=== PATIENT | female | born 1990 | race African-American/Black ===

== ENCOUNTER 2016-04-01 18:41 | Emergency (ER) | payer OTHER ==
[2016-04-01 19:14] VITALS: BP 122/76; PULSE 100; TEMP 98.1; BMI 20.5
[2016-04-01] MEDS ORDERED: ONDANSETRON 4 MG/2 ML VIAL IVPB ONE (21:32)
[2016-04-01] MEDS ORDERED: morphine CARPU-JECT 4 MG/1 ML DISP.SYRIN IVPUSH ONE (21:32)
[2016-04-01] MEDS ORDERED: SODIUM CHLORIDE 1,000 ML IV STA (21:32)
[2016-04-01] MEDS ORDERED: morphine CARPU-JECT 4 MG/1 ML DISP.SYRIN ONE (21:44)
[2016-04-01] MEDS ORDERED: ONDANSETRON 4 MG/2 ML VIAL ONE (21:45)
[2016-04-01 22:10] LABS: BASOPHIL 0.8 % (0-2.0); EOSINOPHIL 0.9 % (0-4.5); MCH 25.1 pg (25.7-33.7); MCHC 31.5 g/dl (32.0-36.0); MEAN CELL VOLUME 79.7 fl (80-96); MEAN PLT VOLUME 8.3 fl (7.5-11.1); NEUTROPHILS 61.4 % (42.8-82.8); PLATELET COUNT 244 K/MM3 (134-434); RDW 14.6 % (11.6-15.6); WHITE BLOOD COUNT 5.1 K/mm3 (4.0-10.0)
[2016-04-01 22:12] LABS: URINE APPEARANCE CLEAR; URINE BILIRUBIN NEGATIVE (NEGATIVE); URINE BLOOD 1+ (NEGATIVE); URINE COLOR STRAW; URINE GLUCOSE (UA) NEGATIVE (NEGATIVE); URINE KETONE NEGATIVE (NEGATIVE); URINE LEUK ESTERASE NEGATIVE (NEGATIVE); URINE NITRITE NEGATIVE (NEGATIVE); URINE PROTEIN NEGATIVE (NEGATIVE); URINE UROBILINOGEN NEGATIVE E.U./dl (0.2-1.0)
[2016-04-01 22:13] LABS: URINE MUCUS RARE; URINE RBC <1 /hpf (0-3); URINE WBC 1 /hpf (3-5)
[2016-04-01 22:50] LABS: ALBUMIN 4.2 g/dl (3.4-5.0); ANION GAP 5 (8-16); CALCIUM 9.3 mg/dL (8.5-10.1); CO2 29 mmol/L (21-32); CREATININE 0.6 mg/dL (0.55-1.02); GLUCOSE,RANDOM 92 mg/dL (74-106); SGOT/AST 16 U/L (15-37); SGPT/ALT 15 U/L (12-78)
[2016-04-01 22:51] LABS: ALK PHOS 58 U/L (45-117); BILIRUBIN,TOTAL 0.4 mg/dL (0.2-1.0); TOT PROT 7.9 g/dl (6.4-8.2)
--- NOTE | 2016-04-01 23:11 | PDOC ---
History of Present Illness - General Chief Complaint: Pain Stated Complaint: VOMITING/ABD PAIN Time Seen by Provider: 04/01/16 20:26 History Source: Patient Exam Limitations: No Limitations - History of Present Illness Initial Comments: 04/01/16 23:09 Patient is a 25-year-old female with h/o HTN, anemia here with complaints of right-sided abdominal pain 2 months. Pain is 10/10 in the right side and radiated to the right flank. States for the past 2-3 weeks she has not been eating well and vomiting with each meal. Describes her pain as sharp and continuous right side and is worse with eating, also associated with abdominal bloating. She was seen at [facility] a week ago for the same condition, and was told that she had a cyst on the ovary but states that the ultrasound machine was down and therefore was not able to get any studies done. States she has no seen her menses since January, had a little bit of spotting last night. She has been taking Tylenol and naproxen without relief of pain. Denies fever, chills, diarrhea. PMD: [facility] PMHX: as above PSocHX: (+) cig 6/day, PFamHx: Noncontributory ALL: NKDA GENERAL/CONSTITUTIONAL: [No fever or chills. No weakness. No weight change.] HEAD, EYES, EARS, NOSE AND THROAT: [No change in vision. No ear pain or discharge. No sore throat.] CARDIOVASCULAR: [No chest pain or shortness of breath.] RESPIRATORY: [No cough, wheezing, or hemoptysis.] GASTROINTESTINAL: [No nausea, vomiting, diarrhea or constipation. No rectal bleeding.] GENITOURINARY: [No dysuria, frequency, or change in urination.] MUSCULOSKELETAL: [No joint or muscle swelling or pain. No neck or back pain.] SKIN AND BREASTS: [No rash or easy bruising.] NEUROLOGIC: [No headache, vertigo, loss of consciousness, or loss of sensation.] PSYCHIATRIC: [No depression or anxiety.] ENDOCRINE: [No increased thirst. No abnormal weight change.] HEMATOLOGIC/LYMPHATIC: [No anemia, easy bleeding, or history of blood clots.] ALLERGIC/IMMUNOLOGIC: [No hives or skin allergy. No latex allergy.] GENERAL: [The patient is awake, alert, and fully oriented, in mild distress.] HEAD: [Normal with no signs of trauma.] EYES: [Pupils equal, round and reactive to light, extraocular movements intact, sclera anicteric, conjunctiva clear.] ENT: [Ears normal, nares patent, oropharynx clear without exudates. Moist mucous membranes.] NECK: [Normal range of motion, supple without lymphadenopathy, JVD, or masses.] LUNGS: [Breath sounds equal, clear to auscultation bilaterally. No wheezes, and no crackles.] HEART: [Regular rate and rhythm, normal S1 and S2 without murmur, rub.] ABDOMEN: [Soft, (+) tenderness right side mid quad to RUQ, normoactive bowel sounds. No guarding, no rebound. No masses, (+) RCVAT] EXTREMITIES: [Normal range of motion, no edema. No clubbing or cyanosis. No cords, erythema, or tenderness.] NEUROLOGICAL: [Cranial nerves II through XII grossly intact. Normal speech, normal gait.] PSYCH: [Normal mood, normal affect.] SKIN: [Warm, Dry, normal turgor, no rashes or lesions noted.] Past History - Past Medical History Allergies/Adverse Reactions: Allergies Allergy/AdvReac Type Severity Reaction Status Date / Time No Known Allergies Allergy Verified 04/01/16 19:13 Home Medications: Ambulatory Orders Tramadol HCl [Ultram] 50 mg PO QID #14 tablet MDD 6 04/02/16 Anemia: Yes Asthma: No Cancer: No Cardiac Disorders: No Diabetes: No HTN: Yes Seizures: No Thyroid Disease: No Other medical history: preeclamsia - Psycho/Social/Smoking Cessation Hx Suicidal Ideation: No Smoking History: Current every day smoker Have you smoked in the past 12 months: Yes Number of Cigarettes Smoked Daily: 6 Information on smoking cessation initiated: No 'Breaking Loose' booklet given: 10/27/15 Hx Alcohol Use: No Drug/Substance Use Hx: No Hx Substance Use Treatment: No *Physical Exam - Vital Signs Last Vital Signs Temp Pulse Resp BP Pulse Ox 98.1 F 100 H 18 122/76 100 04/01/16 19:08 04/01/16 19:08 04/01/16 19:08 04/01/16 19:08 04/01/16 19:08 ED Treatment Course - LABORATORY CBC & Chemistry Diagram: 04/01/16 22:00 04/01/16 22:00 - ADDITIONAL ORDERS Additional order review: Laboratory Results 04/01/16 04/01/16 22:00 22:00 Sodium 138 Potassium 4.4 Chloride 104 Carbon Dioxide 29 Anion Gap 5 L BUN 13 D Creatinine 0.6 Creat Clearance w eGFR > 60 Random Glucose 92 D Calcium 9.3 Total Bilirubin 0.4 D AST 16 ALT 15 Alkaline Phosphatase 58 Total Protein 7.9 Albumin 4.2 Lipase 164 Urine Color Straw Urine Appearance Clear Urine pH 8.0 D Ur Specific [place] 1.009 Urine Protein Negative Urine Glucose (UA) Negative Urine Ketones Negative Urine Blood 1+ H Urine Nitrite Negative Urine Bilirubin Negative Urine Urobilinogen Negative Ur Leukocyte Esterase Negative Urine RBC <1 Urine WBC 1 Ur Epithelial Cells Rare Urine Mucus Rare 04/01/16 22:00 RBC 4.72 MCV 79.7 L MCHC 31.5 L RDW 14.6 MPV 8.3 Neutrophils % 61.4 Lymphocytes % 29.4 D Monocytes % 7.5 Eosinophils % 0.9 Basophils % 0.8 D - RADIOLOGY Radiology Studies Ordered: Category Date Time Status ABDOMEN US [US] Stat Ultrasound 04/01/16 23:04 Ordered KIDNEY / RENAL US [US] Stat Ultrasound 04/01/16 23:04 Ordered - Medications Given in the ED: ED Medications Discontinued Medications Generic Name Dose Route Start Last Admin Trade Name Freq PRN Reason Stop Dose Admin Sodium Chloride 1,000 mls @ 1,000 mls/hr 04/01/16 21:32 04/01/16 22:08 Normal Saline - IV 04/01/16 22:31 1,000 mls/hr ASDIR STA Administration Morphine Sulfate 4 mg 04/01/16 21:32 04/01/16 22:08 Morphine Injection - IVPUSH 04/01/16 21:33 4 mg ONCE ONE Administration Ondansetron HCl 4 mg 04/01/16 21:32 04/01/16 22:08 Zofran Injection IVPB 04/01/16 21:33 4 mg ONCE ONE Administration Medical Decision Making - Medical Decision Making 04/01/16 23:21 Patient is a 25-year-old female with h/o HTN, anemia here with complaints of right-sided abdominal pain 2 months. DDX include but not limited to pregancy, gallstone, kidney stone, ovarian cyst. Appendicits low suspicion due to chronic nature of the pain,. will get labs, US Patient feels better after pain meds. Patient Name: Vitaliy Guzman This is a preliminary report by imaging pay station department manager Exam: Transabdominal and endovaginal sonogram and duplex sonography Images: 51 Clinical indication: Right-sided abdominal pain. Findings: The uterus is anteverted and measures 9.1 x 3.9 x 5.3 cm on transabdominal images. The endometrial complex measures 5 mm in diameter within normal limits. The right ovary measures 3 x 2.6 x 2.9 cm contains follicles and demonstrates normal arterial flow on color Doppler images. The left ovary measures 3.6 x 3.1 x 2.7 cm contains follicles and demonstrates normal arterial flow on color Doppler images. On endovaginal images the uterus is anteverted and has a normal appearance. The right ovary has a normal appearance and contains follicles. The left ovary has a normal appearance and contains follicles. No free fluid is seen. Impression: Normal appearance of the uterus, endometrium and both ovaries with normal vascular flow seen bilaterally. No free fluid. THIS DOCUMENT HAS BEEN ELECTRONICALLY SIGNED Aroldo Oro M.D. 04/02/2016 00:58 JHOAN Galvez. Please call Imaging Pipe Organ Mechanic Apprentice [phone] with questions. Patient Name: Vitaliy Guzman THIS IS A PRELIMINARY REPORT FROM IMAGING ANESTHESIOLOGIST/PHYSICIAN DATE OF SERVICE: 2016-04-02 00:01:05.0 IMAGES: 50 EXAM: ABDOMEN US -LIMITED HISTORY:Right upper quadrant pain COMPARISON: None. FINDINGS: The liver is of a normal size and configuration. There is no evidence for mass or intrahepatic biliary ductal dilatation. There is no ascites. The gallbladder appears unremarkable and no stones are seen. The gallbladder wall is not thickened measuring 0.21 cm. the gallbladder is incompletely distended at this time. There is no pericholecystic fluid. The common bile duct measures 0.44 cm. The pancreas in so far as can be seen appears to be unremarkable. The aorta is not dilated. The right kidney is normal appearing with no evidence of hydronephrosis or mass. The right kidney [id number] x 3.9 x 4.6 cm. IMPRESSION: No gallstones are seen. The gallbladder is incompletely distended. No acute findings are seen in the right upper quadrant. THIS DOCUMENT HAS BEEN ELECTRONICALLY SIGNED Rodriguez Mustafa MD 04/02/2016 01:06 JHOAN Mayes Please call Imaging Pipe Organ Mechanic Apprentice [phone] with questions. Patient Name: Vitaliy Guzman THIS IS A FINAL REPORT FROM IMAGING ANESTHESIOLOGIST/PHYSICIAN DATE OF SERVICE: 2016-04-02 00:19:35.0 IMAGES: 32 EXAM: ULTRASOUND KIDNEY HISTORY: Right-sided pain. COMPARISON: None PROCEDURE: Transverse and longitudinal keller scale images were obtained of both the left and right kidneys. FINDINGS: The right kidney measures 11.3 x 4.8 x 4.4cm. There is no evidence for masses, hydronephrosis or stones. The left kidney measures 10.1 x 3.6 x 4.1cm. There is no evidence for masses, hydronephrosis or stones. IMPRESSION: Normal ultrasound of the kidneys. THIS DOCUMENT HAS BEEN ELECTRONICALLY SIGNED Rodriguez Mustafa MD 04/02/2016 01:07 JHOAN Mayes Please call Imaging Pipe Organ Mechanic Apprentice [phone] with questions. Patient is feeling better post treatment 04/02/16 02:17 I discussed the physical exam findings, ancillary test results and final diagnoses with the patient. I answered all of the patient's questions. The patient was satisfied with the care received and felt comfortable with the discharge plan and treatment plan. The Patient agrees to follow up with the primary care physician within 24-72 hours. *DC/Admit/Observation/Transfer Diagnosis at time of Disposition: Abdominal pain Qualifiers: Abdominal location: right upper quadrant Qualified Code(s): R10.11 - Right upper quadrant pain - Discharge Dispostion Disposition: HOME Condition at time of disposition: Stable - Prescriptions Prescriptions: Tramadol HCl [Ultram] 50 mg PO QID #14 tablet MDD 6 - Patient Instructions Printed Discharge Instructions: DI for Abdominal Pain-Adult Additional Instructions: Your Discharge Instructions: You must call primary care physician within 24 hours to arrange follow-up. Return to the Emergency Department with any new, persistent or worsening symptoms, for fever, chills, SOB, dizziness or any other concerning changes that may occur.
== END 2016-04-02 02:47 | disposition home or self-care (01) ==
LOC: JER 18:41
PROC: 3E033NZ Introduction of Analgesics, Hypnotics, Sedatives into Peripheral Vein, Percutaneous Approach (ICD-10-PCS; principal; 2016-04-01)
PROC: 3E033GC Introduction of Other Therapeutic Substance into Peripheral Vein, Percutaneous Approach (ICD-10-PCS; 2016-04-01)
DX: R10.11 Right upper quadrant pain (principal); I10 Essential (primary) hypertension; D64.9 Anemia, unspecified; F17.210 Nicotine dependence, cigarettes, uncomplicated
CPT/HCPCS: 36415; 76705-TC; 76775-TC; 76830-TC; 76856-TC; 80053; 81003; 81015; 83690; 84703; 85025; 96374; 96375; 99282-25

== ENCOUNTER 2018-05-18 11:16 | Emergency (ER) | payer OTHER ==
[2018-05-18 11:39] VITALS: BP 105/67; PULSE 69; TEMP 98.5; BMI 21.0
[2018-05-18 12:11] LABS: BASO % 0.3 % (0-2.0); EOS % 0.6 % (0-4.5); HEMATOCRIT 33.1 % (32.4-45.2); HEMOGLOBIN 11.3 GM/dL (10.7-15.3); LYMPH % 30.2 % (8-40); MCH 27.5 pg (25.7-33.7); MEAN CELL VOLUME 80.9 fl (80-96); MEAN PLT VOLUME 7.9 fl (7.5-11.1); MONO % 8.1 % (3.8-10.2); NEUT % 60.8 % (42.8-82.8); PLATELET COUNT 227 K/MM3 (134-434); RBC 4.09 M/mm3 (3.60-5.2)
[2018-05-18 12:23] LABS: URINE APPEARANCE SLCLOUDY; URINE BILIRUBIN NEGATIVE (<2.0 mg/dL); URINE COLOR YELLOW; URINE GLUCOSE (UA) NEGATIVE (NEGATIVE); URINE KETONE NEGATIVE (NEGATIVE); URINE LEUK ESTERASE 2+ (NEGATIVE); URINE NITRITE NEGATIVE (NEGATIVE); URINE PROTEIN 1+ (NEGATIVE); URINE UROBILINOGEN NEGATIVE mg/dL (0.2-1.0)
--- NOTE | 2018-05-18 12:23 | PDOC ---
History of Present Illness - General Chief Complaint: Pain Stated Complaint: 16 WEEKS PREG/PAIN Time Seen by Provider: 05/18/18 11:41 History Source: Patient Exam Limitations: No Limitations - History of Present Illness Travel History: No Initial Comments: 05/18/18 12:29 27-year-old female approximately 14 weeks presents the emergency room for evaluation of bilateral periumbilical cramping intermittently for the past week. Patient denies vaginal discharge, urinary complaints, back pain and states has had pain with previous with similar presentation and location. Patient took nothing for the above and states is having elective done by her FIXED INCOME MANAGER but has to take iron pills from another week before scheduling it secondary to low hemoglobin. Timing/Duration: reports: intermittent Quality: reports: mild, cramping Abdominal Pain Onset Location: reports: periumbilical Activities at Onset: reports: none Aggravating Factors: improves with: None Alleviating Factors: improves with: None Past History - Travel Traveled outside of the country in the last 30 days: No Close contact w/someone who was outside of country & ill: No - Past Medical History Allergies/Adverse Reactions: Allergies Allergy/AdvReac Type Severity Reaction Status Date / Time No Known Allergies Allergy Verified 05/18/18 11:36 Home Medications: Ambulatory Orders Tramadol HCl [Ultram] 50 mg PO QID #14 tablet MDD 6 04/02/16 Anemia: Yes Asthma: No Cancer: No Cardiac Disorders: No COPD: No Diabetes: No HTN: Yes Seizures: No Thyroid Disease: No - Reproductive History Cervical CA: No Dysfunctional Uterine Bleeding: No Ectopic : No Endometrial CA: No Polycystic Ovaries: No Tubal Ligation: No - Suicide/Smoking/Psychosocial Hx Smoking History: Current every day smoker Have you smoked in the past 12 months: Yes Number of Cigarettes Smoked Daily: 3 Information on smoking cessation initiated: No 'Breaking Loose' booklet given: 10/27/15 Hx Alcohol Use: No Drug/Substance Use Hx: No Hx Substance Use Treatment: No Patient Lives Alone: No Lives with/in: parents Review of Systems - Review of Systems Able to Perform ROS?: No Constitutional: No: Symptoms Reported HEENTM: No: Symptoms Reported Respiratory: No: Symptoms reported Cardiac (ROS): No: Symptoms Reported ABD/GI: Yes: Abdominal cramping : No: Symptoms Reported Musculoskeletal: No: Symptoms Reported Integumentary: No: Symptoms Reported Neurological: No: Symptoms reported Hematologic/Lymphatic: No: Symptoms Reported *Physical Exam - Vital Signs Last Vital Signs Temp Pulse Resp BP Pulse Ox 98.5 F 69 18 105/67 99 05/18/18 11:32 05/18/18 11:32 05/18/18 11:32 05/18/18 11:32 05/18/18 11:32 - Physical Exam General Appearance: Yes: Nourished, Appropriately Dressed. No: Apparent Distress HEENT: positive: EOMI, Pharynx Normal. negative: Pale Conjunctivae Neck: positive: Normal Thyroid, Supple Respiratory/Chest: positive: Lungs Clear, Normal Breath Sounds. negative: Respiratory Distress, Accessory Muscle Use Cardiovascular: positive: Regular Rhythm, Regular Rate. negative: Murmur Gastrointestinal/Abdominal: positive: Soft, Distended (gravid abdomen). negative: Tenderness Musculoskeletal: negative: CVA Tenderness Extremity: negative: Pedal Edema Integumentary: positive: Normal Color, Warm, Moist Neurologic: positive: Motor Strength 5/5 (ambulatory) Moderate Sedation - Procedure Monitoring Vital Signs: Procedure Monitoring Vital Signs Temperature 98.5 F 05/18/18 11:32 Pulse Rate 69 05/18/18 11:32 Respiratory Rate 18 05/18/18 11:32 Blood Pressure 105/67 05/18/18 11:32 O2 Sat by Pulse Oximetry (%) 99 05/18/18 11:32 ED Treatment Course - LABORATORY CBC & Chemistry Diagram: 05/18/18 11:47 05/18/18 11:45 - RADIOLOGY Radiology Studies Ordered: Category Date Time Status <14WKS US [US] Stat Ultrasound 05/18/18 11:43 Ordered Medical Decision Making - Medical Decision Making 05/18/18 12:26 CC: johnny periumbilical cramping x 1 week, no other complaints, pt approx 14 weeks and is pending an upcoming elective AB. Exam:No abd tenderness, no vag discharge, no cva tenderness Plan: ua, uc, cbc, comp, and u/s, offered tylenol but refused 05/18/18 12:43 Ultrasound shows a single viable intrauterine gestation at approximately 14 weeks in 2 days. There is a heart rate of 1 46 bpm. There is no definitive sonographic abnormality identified. 05/18/18 12:44 Laboratory Tests 05/18/18 05/18/18 11:45 11:47 WBC 5.0 Hgb 11.3 Hct 33.1 Neutrophils % 60.8 Lymphocytes % 30.2 Urine Protein 1+ H Urine Nitrite Negative Urine Bilirubin Negative Urine Urobilinogen Negative Ur Leukocyte Esterase 2+ H u cx sent. comp pending 05/18/18 12:58 Laboratory Tests 05/18/18 05/18/18 11:45 11:45 Sodium 137 Potassium 3.5 Chloride 103 Carbon Dioxide 26 Anion Gap 8 BUN 17 Creatinine 0.6 Random Glucose 79 Calcium 8.9 Total Bilirubin 0.4 AST 14 L ALT 15 Alkaline Phosphatase 45 Total Protein 7.6 Albumin 3.5 Urine WBC (Auto) 22 Urine RBC (Auto) 3 will disharge home w macrobid. no prev cx on file *DC/Admit/Observation/Transfer Diagnosis at time of Disposition: UTI (urinary tract infection) - Discharge Dispostion Disposition: HOME Condition at time of disposition: Good - Referrals - Patient Instructions Printed Discharge Instructions: DI for Urinary Tract Infection (UTI) Additional Instructions: Please take medication as prescribed Drink plenty of fluids and please follow-up with your doctor in regards to your . - Post Discharge Activity
[2018-05-18 12:49] LABS: EPI CELLS FEW /HPF (FEW); URINE MUCUS MANY
[2018-05-18 12:55] LABS: ALBUMIN 3.5 g/dl (3.4-5.0); ALK PHOS 45 U/L (45-117); ANION GAP 8 MMOL/L (8-16); BILIRUBIN,TOTAL 0.4 mg/dL (0.2-1); BLOOD UREA NITROGEN 17 mg/dL (7-18); CALCIUM 8.9 mg/dL (8.5-10.1); CHLORIDE 103 mmol/L (98-107); CO2 26 mmol/L (21-32); CREATININE 0.6 mg/dL (0.55-1.3); GLUCOSE,RANDOM 79 mg/dL (74-106); POTASSIUM 3.5 mmol/L (3.5-5.1); SGOT/AST 14 U/L (15-37); SGPT/ALT 15 U/L (13-61); SODIUM 137 mmol/L (136-145); TOT PROT 7.6 g/dl (6.4-8.2)
== END 2018-05-18 13:34 | disposition home or self-care (01) ==
LOC: JER 11:16
DX: O26.892 Other specified pregnancy related conditions, second trimester (principal); O23.32 Infections of other parts of urinary tract in pregnancy, second trimester; Z3A.14 14 weeks gestation of pregnancy
CPT/HCPCS: 36415; 76801-TC; 80053; 81003; 81015; 85025; 87086; 99282-25